=== PATIENT | male | born 1980 | race African-American/Black ===

== ENCOUNTER 2021-04-02 10:09 | Outpatient (CLI) | payer OTHER | END 2021-04-02 10:10 | disposition home or self-care (01) | LOC: CSHMRI 10:09 | PROVIDERS: ATTEND Nurse Practitioner Family | DX: R41.3 Other amnesia (principal); R51.9 Headache, unspecified; G43.919 Migraine, unspecified, intractable, without status migrainosus | CPT/HCPCS: 70553 ==

== ENCOUNTER 2025-02-15 10:15 | Day surgery (SDC) | payer OTHER ==
[2025-02-10 12:33] VITALS: BMI 28.7
[2025-02-15] MEDS ORDERED: CEFAZOLIN 2 GM VIAL ONE (13:05)
[2025-02-15] MEDS ORDERED: PROPOFOL 40 ML ONE (13:17)
[2025-02-15] MEDS ORDERED: Lidocaine 1% PF 5 ML VIAL ONE (13:19)
[2025-02-15] MEDS ORDERED: Ondansetron PF 4 MG/2 ML Vial ONE (14:14)
[2025-02-15] MEDS ORDERED: Ketorolac Tromethamine 30 MG (1 mL) VIAL ONE (14:16)
[2025-02-15] MEDS ORDERED: oxyCODONE 5 MG TAB ONE (15:35)
== END 2025-02-15 16:28 | disposition home or self-care (01) ==
LOC: CSHSDC 10:15
PROVIDERS: ATTEND Podiatrist Foot & Ankle Surgery
PROC: 0QBP0ZZ Excision of Left Metatarsal, Open Approach (ICD-10-PCS; principal; 2025-02-15)
DX: M20.12 Hallux valgus (acquired), left foot (principal); E66.9 Obesity, unspecified; Z68.28 Body mass index [BMI] 28.0-28.9, adult
CPT/HCPCS: C1713; C1769; J0665; J1100; J1885; J2704